=== PATIENT | female | born 1990 | race Caucasian/White ===

== ENCOUNTER → 2019-04-17 | Outpatient (CLI) | payer OTHER ==
[2019-04-17 13:15] LABS: HEMATOCRIT 37.8 % (36.0-47.0); HEMOGLOBIN 12.4 g/dl (12.0-15.5); MEAN CORPUSCULAR HEMOGLOBIN 30.8 pg (27.0-33.0); MEAN CORPUSCULAR HGB CONC 32.8 g/dl (32.0-36.5); PLATELET COUNT, AUTOMATED 265 10^3/uL (150-450); RED BLOOD COUNT 4.02 10^6/uL (4.00-5.40); WHITE BLOOD COUNT 13.7 10^3/uL (4.0-10.0)
[2019-04-17 15:00] LABS: CHLAMYDIA DNA AMPLIFICATION NEGATIVE (NEGATIVE); GC DNA AMPLIFICATION NEGATIVE (NEGATIVE)
== END ==
LOC: M SMT 10:40
PROVIDERS: ATTEND Obstetrics & Gynecology
DX: Z34.82 Encounter for supervision of other normal pregnancy, second trimester (principal); Z3A.00 Weeks of gestation of pregnancy not specified

== ENCOUNTER → 2019-06-15 | Outpatient (CLI) | payer OTHER | LOC: M SMT 09:45 | PROVIDERS: ATTEND Advanced Practice Midwife | DX: Z34.03 Encounter for supervision of normal first pregnancy, third trimester (principal) ==

== ENCOUNTER 2019-07-04 06:11 | Inpatient (IN) | payer OTHER ==
[2019-07-04] VITALS (13 sets, daily range): BP systolic 110–148; BP diastolic 52–82
[~2019-07-04] VITALS: Ht 170.2 cm; Wt 110.8 kg
[2019-07-04] MEDS ORDERED: PRENTAB9 PO (06:58)
[2019-07-04 11:25] LABS: HEMATOCRIT 40.8 % (36.0-47.0); HEMOGLOBIN 13.9 g/dl (12.0-15.5); MEAN CORPUSCULAR HEMOGLOBIN 31.1 pg (27.0-33.0); MEAN CORPUSCULAR HGB CONC 34.1 g/dl (32.0-36.5); MEAN CORPUSCULAR VOLUME 91.3 fl (80.0-96.0); PLATELET COUNT, AUTOMATED 227 10^3/uL (150-450); RED BLOOD COUNT 4.47 10^6/uL (4.00-5.40); WHITE BLOOD COUNT 18.3 10^3/uL (4.0-10.0)
--- NOTE | 2019-07-04 14:29 | HPE ---
DATE OF ADMISSION: 07/04/2019 HISTORY OF PRESENT ILLNESS: The patient is a 28-year-old female who is a 1, para 0, at 39 weeks and 5 days gestation with an expected date of delivery (JOVITA) of 07/06/2019, based off her last menstrual period (LMP) and consistent with her first trimester ultrasound. The patient initiated care in [facility], and transferred care between 26 and 28 weeks to [facility]. Her has been uncomplicated. She presents to labor and delivery with complaints of contractions that are every 4 minutes and spontaneous rupture of membrane at 2300 of clear fluid on 07/03/2019. She reports active movement. She denies vaginal bleeding. MEDICAL HISTORY: No problems. SURGICAL HISTORY: Oral surgery. Patient has dental implants. FAMILY HISTORY: Diabetes, heart disease, high blood pressure, hypothyroid, lung cancer. SOCIAL HISTORY: Patient is . She is unemployed. She has a master's degree. She denies being a smoker. She denies any history of alcohol abuse or use during or illicit drug abuse or use during or prior to . She denies history of any sexually transmitted infections. LABS: Blood type is A positive. Her antibody screen is negative. Her hemoglobin and hematocrit is 13.8 and 40.6 with platelets of 310 in the first trimester. Rubella is immune. VDRL is nonreactive. Urine culture is no growth. Hepatitis B surface antigen is negative. HIV is negative. Hepatitis C is nonreactive. Gonorrhea and Chlamydia are both negative. She is not a carrier for cystic fibrosis, SMA which is spinomuscular atrophy or fragile X syndrome. Her one hour glucose tolerance test was 90 with hemoglobin and hematocrit of 12.4 and 37.8 with platelets of 265. She is GBS negative. Her third trimester HIV was negative. heart rate 130, moderate variability, positive accelerations, one deceleration noted, a 4 minute decel when patient arrived to the unit. Since then she has had a category I heart rate tracing after an scalp electrode (FSE) was placed. Contractions are every 2 to 7 minutes. VITAL SIGNS: Temperature 98.2, pulse 83, respiratory rate 20, blood pressure 113/52. The patient had positive Nitrazine with a lot of moisture in the vaginal area and positive clear leaking of fluid with vaginal exam. Vaginal exam upon initial arrival was 2-3, 50% effaced, -2 station. A few hours after when I assessed, she was 4 cm dilated, 90% effaced and 0 station with continuous clear liquid fluid draining from the vagina. PHYSICAL ASSESSMENT: General: Alert and oriented times three. Respiratory: Regular rate and rhythm with no use of accessory muscles. Cardiovascular: No murmur. No rubs. No gallops. Regular rate. Abdomen: Gravid. Nontender to touch. Contractions to palpate moderately. Cephalic presentation noted via Shahram and vaginal exam. Lower Extremities: No pitting edema. No clonus. ASSESSMENT: Intrauterine at 39.5 weeks gestation, active labor, spontaneous rupture of membrane, Category 1 heart rate tracing. PLAN: Admit patient to labor and delivery. Saline lock and labs per unit protocol. Out of bed ad kvng. Intermittent monitoring per patient's request. FSE was placed due to difficulty monitoring fetus. The patient desires nature childbirth with minimal intervention. Risks reviewed with patient and about the four minute deceleration and need for potential more frequent monitoring. The patient and verbalized understanding. Anesthesia consult per patient's request if she desires. Anticipate cervical change and spontaneous vaginal delivery.
--- NOTE | 2019-07-04 15:10 | IPNPDOC ---
Obstetrical Progress Note Date of Service Jul 04, 2019 Subjective Patient reports increased vaginal pressure. Objective Vital Signs Date Time Temp Pulse Resp B/P (MAP) Pulse Ox O2 Delivery O2 Flow Rate FiO2 07/04/19 13:44 108 20 131/69 (89) 07/04/19 12:23 98.2 Assessment Heart Rate (FHR): 135 Variability: Moderate Accelerations: Positive Decelerations: Early Heart Rate Tracing: Category I Tocometer Contractions: Yes Frequency: regular Sterile Vaginal Examination Dilation: 5 cm Effacement (%): 90% Station: 0 Cervical Consistency: Soft Cervical Position: Anterior Postion/Presentation: Cephalic presentation Assessment and Plan EGA at Admission: 39.5 Status: Reassuring Group B Streptococcus: Negative Anticipate: Vaginal Delivery Additional Comments Reviewed increased risk of infection after 24 hours due to SROM. Patient offered IV Pitocin due to minimal cervical change. She and will discuss and decide if she desires this. MARCY MCCLELLAND CNM Jul 04, 2019 15:10
[2019-07-04] MEDS ORDERED: PROMETHAZINE INJ 25 MG/ML VIAL (J2550) As Ordered ONE (16:53)
[2019-07-04] MEDS ORDERED: BUTORPHANOL 2 MG/ML INJ (J0595) As Ordered ONE (16:53)
[2019-07-04] MEDS ORDERED: PROMETHAZINE INJ 25 MG/ML VIAL (J2550) IV ONE ×2 (17:00→21:00)
[2019-07-04] MEDS: BUTORPHANOL 2 MG/ML INJ (J0595) IV PRN ×2 (17:01→20:24)
--- NOTE | 2019-07-04 18:58 | IPNPDOC ---
Obstetrical Progress Note Date of Service Jul 04, 2019 Subjective Patient reports pressure and feels like she has to urinate every time she has a contraction. Objective Vital Signs Date Time Temp Pulse Resp B/P (MAP) Pulse Ox O2 Delivery O2 Flow Rate FiO2 07/04/19 17:49 96 20 121/71 (88) 07/04/19 17:20 97.8 Assessment Heart Rate (FHR): 135 Variability: Moderate Accelerations: Positive Decelerations: None Heart Rate Tracing: Category I Tocometer Contractions: Yes Frequency: other (2-6 minutes) Sterile Vaginal Examination Dilation: 6 cm Effacement (%): 100% Station: 0 Postion/Presentation: Cephalic presentation Assessment and Plan EGA at Admission: 39.5 Status: Reassuring Group B Streptococcus: Negative Anticipate: Vaginal Delivery Additional Comments Offered IV Pitocin due to small amount of cervical change. Patient will decide once gets back from eating. MARCY MCCLELLAND CNM Jul 04, 2019 18:58
[2019-07-04] MEDS ORDERED: LR 1,000 ML IV SCH (19:59)
[2019-07-04] MEDS ORDERED: OXYTOCIN DRIP 30 UNITS in APPROPRIATE DILUENT 1 EA IV SCH ×2 (20:00→22:53)
[2019-07-04] MEDS ORDERED: BUTORPHANOL 2 MG/ML INJ (J0595) IV ONE (20:15)
[2019-07-04] MEDS ORDERED: DOCUSATE SODIUM 100 MG CAP PO PRN (23:00)
[2019-07-04] MEDS ORDERED: IBUPROFEN 800 MG TAB PO PRN (23:00)
[2019-07-04] MEDS ORDERED: METHYLERGONOVINE MALEATE 0.2 MG TAB PO PRN (23:00)
[2019-07-04] MEDS ORDERED: RHOGAM 300 MCG (1500 IU) INJ (J2790) IM SCH (23:00)
[2019-07-04] MEDS ORDERED: IBUPROFEN 600 MG TAB PO PRN (23:00)
[2019-07-04] MEDS ORDERED: DIBUCAINE 1% OINTMENT 30GM TOP PRN (23:00)
[2019-07-04] MEDS ORDERED: LIDOCAINE 1% MDV 20ML VIAL INFIL ONE (23:00)
[2019-07-04] MEDS ORDERED: MEASLES,MUMPS,RUBELLA VACCINE INJ (MMR-II) (90707) SC SCH (23:00)
[2019-07-04] MEDS ORDERED: ACETAMINOPHEN 500 MG TAB PO PRN (23:00)
[2019-07-04] MEDS ORDERED: ANUSOL HC CREAM 30GM TOP PRN (23:00)
[2019-07-05 00:11] VITALS: BP 129/59
[2019-07-05 05:34] VITALS: BP 122/62
--- NOTE | 2019-07-05 06:19 | IPNPDOC ---
Text Note Date of Service The patient was seen on 07/05/19. NOTE Day 1 s/p ; uncomplicated S: pain well controlled, lochia and bleeding decreasing, voiding spontaneously, ambulating without assistance, tolerating regular diet. Breast feeding with supplementation. O: vitals stable Heart: RRR, no murmurs Lungs: CTA bilaterally Abd: fundus firm at U-1 Ext: no edema, nontender, negative Nicolette's bilaterally A/P: 28 yo G1 now P1. day 1 s/p Hemodynamically stable, afebrile, adequate pain control. Recovering well. -Routine care and advancement. -Anticipate discharge tomorrow VS,Fishbone, I+O VS, Fishbone, I+O Laboratory Tests 07/04/19 11:12 Red Blood Count 4.47, Mean Corpuscular Volume 91.3, Mean Corpuscular Hemoglobin 31.1, Mean Corpuscular Hemoglobin Concent 34.1, Red Cell Distribution Width 13.4 Vital Signs Date Time Temp Pulse Resp B/P (MAP) Pulse Ox O2 Delivery O2 Flow Rate FiO2 07/05/19 05:34 99.7 109 20 122/62 (82) I&O- Last 24 Hours up to 6 AM 07/05/19 05:59 Intake Total 2000 ml Output Total 400 ml Balance 1600 ml GME ATTESTATION E ATTESTATION My faculty preceptor for this patient encounter was physically present during the encounter and was fully available. All aspects of the patient interview, examination, medical decision making process, and medical care plan development were reviewed and approved by the faculty preceptor. The faculty preceptor is aware and concurs with the plan as stated in the body of this note and will attest to such by his/her cosignature. BREE RIVERA DO Jul 05, 2019 06:19
[2019-07-05] MEDS: PRENATAL VITAMINS CHEWABLE TABLET PO SCH (08:12)
--- NOTE | 2019-07-05 10:00 | DN ---
DELIVERY TIME AND DATE: 07/04/2019 at 2111. STATUS: Delivered via vaginal delivery. ANESTHESIA: None. PROVIDER: Shannon Ceballos CNM, OSCAR ESTIMATED BLOOD LOSS: 400 mL. FINDINGS: Female, 7 pounds, 13 ounces, 3530 grams, Apgars 8/9, nuchal cord times one tight. Patient is a 28-year-old female who is now a 1, para 0-0-1 at 39 weeks 5 days gestation who presented to labor and delivery with complaints of spontaneous rupture of membranes on 07/03/2019 at 2300 in active labor. The patient progressed to fully dilated at 2101. She received a very small amount of IV pitocin and Stadol and Phenergan for pain management. She pushed to a living female in the left occiput anterior (CARLOS) position, restitution to left occiput transverse (LOT). Nuchal cord times one tight was noted. The anterior shoulder delivered with ease and the corpus immediately followed. The baby was placed on the maternal abdomen, active and crying with stimulation. The cord was clamped times two after pulsation ceased and cut by the father of the baby. A three-vessel cord was noted. The placenta delivered spontaneously and intact at 0. Uterine hemostasis was achieved via rapid infusion of IV pitocin and fundal massage. The peroneum, cervix, and vaginal was inspected and found to have a second degree peroneal laceration that was repaired with a #3-[address]-1 till good hemostasis was achieved. The mom plans to breast feed her . They plan on naming her Chanel. Both mom and baby are in stable condition. All counts of instruments and sponges are correct. MTDD
[2019-07-05] MEDS: ACETAMINOPHEN TAB 650MG DOSE (2X325MG) PO PRN ×2 (12:33→18:30)
[2019-07-05 18:00] VITALS: BP 113/57
[2019-07-06 05:51] VITALS: BP 100/59
[2019-07-06] MEDS: PRENATAL VITAMINS CHEWABLE TABLET PO SCH (09:50)
== END 2019-07-06 11:25 | disposition home or self-care (01) | DRG 807 ==
LOC: M LDO 06:11 → M LDI 06:52 → M OBS 23:33
PROVIDERS: ADMIT Advanced Practice Midwife; ATTEND Advanced Practice Midwife
PROC: 10E0XZZ Delivery of Products of Conception, External Approach (ICD-10-PCS; principal; 2019-07-04)
PROC: 0KQM0ZZ Repair Perineum Muscle, Open Approach (ICD-10-PCS; 2019-07-04)
DX: O69.1XX0 Labor and delivery complicated by cord around neck, with compression, not applicable or unspecified (principal); Z37.0 Single live birth; Z3A.39 39 weeks gestation of pregnancy; O70.1 Second degree perineal laceration during delivery

== ENCOUNTER → 2019-08-18 | Outpatient (CLI) | payer OTHER ==
[~2019-08-18] MED LIST: PRENTAB9 PO
[2019-08-18 14:43] LABS: FREE T4 1.01 NG/DL (0.76-1.46); THYROID STIMULATING HORMONE 1.15 uIU/ML (0.358-3.740)
== END ==
LOC: M SMT 09:43
PROVIDERS: ATTEND Advanced Practice Midwife
DX: Z83.49 Family history of other endocrine, nutritional and metabolic diseases (principal)

== ENCOUNTER → 2019-10-19 | Outpatient (REF) | payer OTHER | LOC: M SFHCWAGY 17:20 | PROVIDERS: ATTEND Advanced Practice Midwife | DX: Z01.419 Encounter for gynecological examination (general) (routine) without abnormal findings (principal) | CPT/HCPCS: 87624; G0123; G0463 ==

== ENCOUNTER → 2020-06-20 | Outpatient (CLI) | payer OTHER | LOC: M PLALAB 13:05 | PROVIDERS: ATTEND Obstetrics & Gynecology | DX: O20.0 Threatened abortion (principal); Z3A.00 Weeks of gestation of pregnancy not specified ==

== ENCOUNTER → 2020-06-22 | Outpatient (CLI) | payer OTHER | LOC: M LAB 09:09 | PROVIDERS: ATTEND Advanced Practice Midwife | DX: Z34.80 Encounter for supervision of other normal pregnancy, unspecified trimester (principal); Z3A.00 Weeks of gestation of pregnancy not specified ==

== ENCOUNTER → 2020-06-27 | Outpatient (CLI) | payer OTHER | LOC: M PLALAB 09:25 | PROVIDERS: ATTEND Advanced Practice Midwife | DX: O03.9 Complete or unspecified spontaneous abortion without complication (principal) ==

== ENCOUNTER → 2020-08-22 | Outpatient (REF) | payer OTHER ==
[2020-08-22 14:02] LABS: HEMATOCRIT 45.7 % (36.0-47.0); MEAN CORPUSCULAR HEMOGLOBIN 30.4 pg (27.0-33.0); MEAN CORPUSCULAR HGB CONC 32.8 g/dl (32.0-36.5); MEAN CORPUSCULAR VOLUME 92.5 fl (80.0-96.0); PLATELET COUNT, AUTOMATED 297 10^3/uL (150-450); RED BLOOD COUNT 4.94 10^6/uL (4.00-5.40); WHITE BLOOD COUNT 10.1 10^3/uL (4.0-10.0)
[2020-08-22 14:27] LABS: GLUCOSE CHALLENGE TEST 1 HOUR 56 MG/DL (LESS THAN 140)
[2020-08-22 14:30] LABS: HEMOGLOBIN A1c 5.2 %
[2020-08-22 15:22] LABS: HEPATITIS C VIRUS ABY INDEX 0.1 INDEX (<0.8); HIV 1&2 SCREEN CENTAUR NEGATIVE (NEGATIVE)
== END ==
LOC: M PLALAB 09:29
PROVIDERS: ATTEND Advanced Practice Midwife
DX: O99.211 Obesity complicating pregnancy, first trimester (principal)

== ENCOUNTER → 2020-08-27 | Outpatient (REF) | payer OTHER ==
[2020-08-28 16:44] LABS: CHLAMYDIA DNA AMPLIFICATION NEGATIVE (NEGATIVE); GC DNA AMPLIFICATION NEGATIVE (NEGATIVE)
== END ==
LOC: M SFHCWAGY 16:47
PROVIDERS: ATTEND Advanced Practice Midwife
DX: Z11.3 Encounter for screening for infections with a predominantly sexual mode of transmission (principal)
CPT/HCPCS: 87491; 87591; G0463

== ENCOUNTER → 2020-09-20 | Outpatient (CLI) | payer OTHER | LOC: M PLALAB 11:02 | PROVIDERS: ATTEND Advanced Practice Midwife | DX: Z34.82 Encounter for supervision of other normal pregnancy, second trimester (principal); Z36.89 Encounter for other specified antenatal screening ==

== ENCOUNTER → 2020-10-03 | Outpatient (CLI) | payer OTHER | LOC: M PLALAB 13:56 | PROVIDERS: ATTEND Advanced Practice Midwife | DX: Z13.79 Encounter for other screening for genetic and chromosomal anomalies (principal) ==

== ENCOUNTER → 2020-11-04 | Outpatient (CLI) | payer OTHER ==
--- NOTE | 2020-11-04 11:05 | REP ---
INDICATION: ANATOMY. COMPARISON: None. TECHNIQUE: Transabdominal obstetric sonography: FINDINGS: Scanning through the gravid uterus demonstrates a viable single intrauterine gestation in transverse, head to the maternal right lie. motion is observed and heart rate is recorded at 158 beats per minute. A anterior placenta is seen, grade 1, without evidence of placenta previa. Amniotic fluid is subjectively normal. Closed cervical length is measured at 4.2 cm transabdominally. No extrauterine abnormality is observed. Amniotic fluid is subjectively normal. No anomaly is seen. The following anatomic structures are identified and felt to be sonographically unremarkable: cranium, choroid plexus, cavum, cerebellum and posterior fossa, face and profile, lungs, left and right ventricular outflow tract views, diaphragm, left-sided stomach, abdominal wall cord insertion, three-vessel umbilical cord, kidneys and bladder, spine, and upper and lower extremities. Four-chamber heart visualization was less than optimally achieved due to position today. Biometry chart: BPD 4.3 cm, 18 weeks 6 days Head circumference 16.1 cm, 18 weeks 6 days Abdominal circumference 14.4 cm, 19 weeks 5 days Femur length 3.0 cm, 19 weeks 1 day Humeral length 3.0 cm, 19 weeks 5 days HC AC ratio normal 1.12 Cephalic index normal 0.73 Estimated weight 290 g, 0 lb 10 oz, 21st percentile for 19 weeks 6 days IMPRESSION: Viable single intrauterine gestation at 19 weeks 2 days by today's composite sonographic criteria. JOVITA by today's sonography March 29, 2021.. No complication identified. Four-chamber heart view less than optimally visualized today due to position. <Electronically signed by Boyd Fraser > 11/04/20 1105
== END ==
LOC: M WHC 09:25
PROVIDERS: ATTEND Obstetrics & Gynecology
DX: Z34.82 Encounter for supervision of other normal pregnancy, second trimester (principal); Z3A.19 19 weeks gestation of pregnancy

== ENCOUNTER → 2020-11-12 | Outpatient (REF) | payer OTHER | LOC: M LAB REF 12:56 | PROVIDERS: ATTEND Obstetrics & Gynecology | DX: Z34.83 Encounter for supervision of other normal pregnancy, third trimester (principal); Z3A.00 Weeks of gestation of pregnancy not specified ==

== ENCOUNTER → 2020-12-02 | Outpatient (CLI) | payer OTHER ==
--- NOTE | 2020-12-02 08:18 | REP ---
INDICATION: F/U ANATOMY. COMPARISON: Comparison obstetric sonography is from November 04, 2020.. TECHNIQUE: Transabdominal obstetric sonography. FINDINGS: Scanning through the gravid uterus demonstrates a viable single intrauterine gestation in cephalic lie. motion is observed and heart rate is recorded at 153 beats per minute. A anterior placenta is seen, grade 1, without evidence of placenta previa. Closed cervical length is measured at 3.3 cm transabdominally. No extrauterine abnormality is observed. Amniotic fluid is subjectively normal. The following anatomic structures are identified today and felt to be unremarkable: cranium, face and profile, four-chamber heart with left and right ventricular outflow tract views, left-sided stomach, kidneys and urinary bladder, three-vessel cord.. Biometry chart: BPD 5.5 cm, 22 weeks 6 days Head circumference 20.7 cm, 22 weeks 5 days Abdominal circumference 18.2 cm, 23 weeks 0 days, Femur length 4.2 cm, 23 weeks 4 days Humeral length 4.0 cm, 24 weeks 1 day HC AC ratio normal 1.14 Cephalic index normal 0.74 Estimated weight 572 g, 1 lb 4 oz, 16th percentile for 23 weeks 4 days IMPRESSION: Viable single intrauterine gestation at 23 weeks 2 days by today's composite sonographic criteria. JOVITA by today's sonography 03/29/2021. No complication identified. Expected gestational age estimate based on prior sonography is 23 weeks 6 days JOVITA by prior sonography March 25, 2021. In conjunction with the prior study, anatomic survey is felt to be complete. <Electronically signed by Boyd Fraser > 12/02/20 0862
== END ==
LOC: M WHC 06:39
PROVIDERS: ATTEND Advanced Practice Midwife
DX: Z36.2 Encounter for other antenatal screening follow-up (principal); Z3A.23 23 weeks gestation of pregnancy

== ENCOUNTER → 2021-01-01 | Outpatient (CLI) | payer OTHER ==
[2021-01-01 12:01] LABS: HEMATOCRIT 39.3 % (36.0-47.0); MEAN CORPUSCULAR HEMOGLOBIN 30.7 pg (27.0-33.0); MEAN CORPUSCULAR HGB CONC 33.1 g/dl (32.0-36.5); MEAN CORPUSCULAR VOLUME 92.9 fl (80.0-96.0); PLATELET COUNT, AUTOMATED 247 10^3/uL (150-450); RED BLOOD COUNT 4.23 10^6/uL (4.00-5.40); WHITE BLOOD COUNT 11.2 10^3/uL (4.0-10.0)
== END ==
LOC: M LAB 09:46
PROVIDERS: ATTEND Obstetrics & Gynecology
DX: Z34.82 Encounter for supervision of other normal pregnancy, second trimester (principal); Z3A.00 Weeks of gestation of pregnancy not specified

== ENCOUNTER → 2021-01-07 | Outpatient (REF) | payer OTHER | LOC: M LAB REF 12:25 | PROVIDERS: ATTEND Advanced Practice Midwife | DX: Z34.82 Encounter for supervision of other normal pregnancy, second trimester (principal) ==

== ENCOUNTER → 2021-02-18 | Outpatient (REF) | payer OTHER | LOC: M LAB REF 11:19 | PROVIDERS: ATTEND Obstetrics & Gynecology | DX: Z36.89 Encounter for other specified antenatal screening (principal); Z34.83 Encounter for supervision of other normal pregnancy, third trimester ==